=== PATIENT | male | born 1945 | race Caucasian/White ===

== ENCOUNTER → 2024-08-17 10:58 | Outpatient (REF) | payer OTHER, SELFPAY | LOC: HWRCS 10:58 | PROVIDERS: ATTENDING PHYSICIAN Internal Medicine Cardiovascular Disease; FAMILY PHYSICIAN Family Medicine | DX: I45.10 Unspecified right bundle-branch block (principal); I44.4 Left anterior fascicular block | CPT/HCPCS: 93306 ==

== ENCOUNTER 2024-11-11 09:49 | Emergency (ER) | payer OTHER, SELFPAY ==
[2024-11-11 09:54] VITALS: BP 156/95
[2024-11-11 10:06] VITALS: BMI 34.5
[2024-11-11 11:03] VITALS: BP 140/99
--- NOTE | 2024-11-11 11:36 | ED.GENMED ---
History of Present Illness
General
Chief Complaint: Musculo-Skeletal Complaint
Source: patient
Exam Limitations: none
Time Seen by Provider: 11/11/24 10:04
Nursing documentation reviewed up to this point in time: agreed with
History of Present Illness
History of Present Illness:
79-year-old male past medical history of hypertension hyperlipidemia presenting to the emergency department today after a slip and fall on ice injuring his left ankle yesterday. He is unsure how it bent. Denies had any additional injury did not
hit his head or lose consciousness. Denies any numbness or weakness.
Past History
Past History
ED Past Medical History: HTN and Hypercholesterolemia
ED Past Surgical History: Orthopedic (Knee surgery, ankle surgery, back surgery)
Social History
Tobacco: Non-smoker
Alcohol: Occasional
Drug: None
Personal:
Living: with family
Employment: Retired
Review of Systems
Review of Systems
Allergies reviewed?: Yes
All Other Systems: ROS reviewed and negative except as documented in HPI and ROS
Phy Exam
Physical Exam
Physical Exam:
GENERAL: Alert , in no apparent distress
EYE: pupils equal and reactive
NECK: Supple, no significant adenopathy.
ENT: o/p clr, mmm.
CARDIAC: Regular rate and rhythm .
LUNGS: Clear breath sounds bilaterally, no acute respiratory distress, no wheezes/rales/rhonchi
ABDOMEN: Soft, without focal tenderness, no r/g, no cvat
NEUROLOGICAL: Alert and oriented, no focal neuro deficits
SKIN: Warm and dry, skin intact.
MUSCULOSKELETAL: Swelling surrounding left ankle. Tenderness palpation to the medial and lateral malleolus. No tenderness about the foot with the tib-fib. No tenderness to the knee. Well perfused.
PSYCH: Normal and appropriate interaction.
Course
Orders/Labs/Results
Orders:
Orders
11/11/24 09:49
Ankle, left 3 view CR [CR Ankle - Left Min 3 Views ] Urgent
Comment:
Reason For Exam: pain and swelling
11/11/24 11:13
Walker [Treatment- Walker] ONCE
boot [Ortho Boot Left- Treatment] ONCE
Short or tall?: Tall
Vital Signs
Initial and Last Documented VS:
Initial Vital Signs
Temp Pulse Resp BP Pulse Ox
97.5 F 79 16 156/95 97
11/11/24 09:54 11/11/24 09:54 11/11/24 09:54 11/11/24 09:54 11/11/24 09:54
Last Documented Vital Signs
Temp Pulse Resp BP Pulse Ox
97.5 F 70 16 140/99 100
11/11/24 09:54 11/11/24 11:03 11/11/24 11:03 11/11/24 11:03 11/11/24 11:03
MDM/Problems Addressed
MDM/Problems Addressed:
79-year-old male presenting to the emergency department after a slip and fall yesterday where he twisted his left ankle. Has been able to walk on his ankle but has had significant discomfort. Neuro vastly intact on examination. X-ray showing a
fibular fracture as well as a distal avulsion fracture of the tibia. The patient at this baseline ambulation status would have difficulty with crutches. The case was discussed with orthopedics about the possibility of a boot and limited
weightbearing with a walker which seem to be reasonable in the circumstance. He was advised for close outpatient follow-up for repeated imaging and monitoring. Patient agreeable to the plan. Return precautions given.
*Critical Care Note
Total Time (30-74mins, 75-104mins- exclusive of procedures): Not Applicable
ED Attending Note
-
Portions of this chart may have been created with voice recognition software.� Occasional wrong word or��sound alike� substitutions may have occurred due to the inherent limitations of voice recognition software.
Discharge Plan
Departure
Patient Disposition: Home (Routine Discharge)
Date of Disposition: 11/11/24
Time of Disposition: 11:56
Patient with high blood pressure during this ER visit?: No
Condition: Good
Covid-19: Not Applicable
Discharge Problem:
Ankle fracture, left
Instructions: Ankle Fracture (DC)
Prescriptions:
No Action
potassium citrate 10 MEQ tablet extended release
10 meq PO BID
simvastatin 20 MG tablet
20 mg PO DAILY
valsartan [Diovan] 80 MG tablet
80 mg PO DAILY
levothyroxine [Synthroid] 100 MCG tablet
100 mcg PO DAILY
Align
1 tab PO DAILY
Metamucil
1 dose PO DAILY
Patient Comments:
with water
Referrals:
Jose Cruz Hooks MD [Active] - Follow up in 10 days
Sourav Mari DO [Family Provider] -
Activity Restrictions/Additional Instructions:
You came to emergency department today and you are found to have an ankle fracture. Please limit weightbearing elevate and ice and follow-up closely with orthopedics. Return to the emergency department any worsening, new or concerning symptoms.
Interventions
Interventions:
*Risk Screen - Suicide Last Done: 11/11/24 10:08
*General Assessment Last Done: 11/11/24 10:07
*Neglect/Abuse Screening Last Done: 11/11/24 10:08
ED- Fall Risk Assessment Last Done: 11/11/24 10:09
*ED COVID-19 Vaccine History Last Done: 11/11/24 10:07
ED-Musculoskeletal Assessment Last Done: 11/11/24 10:09
Discharge Date and Time
Print Language: ARMENIAN
[2024-11-11 12:15] VITALS: BP 137/79
== END 2024-11-11 12:20 | disposition home or self-care (01) ==
LOC: EMR 09:49
PROVIDERS: EMERGENCY PHYSICIAN Emergency Medicine; FAMILY PHYSICIAN Family Medicine
DX: S82.892A Other fracture of left lower leg, initial encounter for closed fracture (principal); W00.0XXA Fall on same level due to ice and snow, initial encounter; I10 Essential (primary) hypertension; E78.00 Pure hypercholesterolemia, unspecified
CPT/HCPCS: 99283; 73610

== ENCOUNTER → 2025-11-06 11:09 | Outpatient (REF) | payer OTHER, SELFPAY | LOC: HWRCS 11:09 | PROVIDERS: ATTENDING PHYSICIAN Internal Medicine Cardiovascular Disease; FAMILY PHYSICIAN Family Medicine | DX: I45.10 Unspecified right bundle-branch block (principal) | CPT/HCPCS: 78452; 93017; A9500 ==